=== PATIENT | male | born 1985 | race Caucasian/White ===

== ENCOUNTER 2023-01-22 16:20 | Inpatient (IN) | payer OTHER ==
[2023-01-22 18:01] VITALS: BMI 25.8
[2023-01-22] MEDS ORDERED: NALOXONE HCL 0.4 MG/ML VIAL IM PRN (19:23)
[2023-01-22] MEDS ORDERED: IBUPROFEN 400 MG TABLET (FP) PO PRN (19:23)
[2023-01-22] MEDS ORDERED: BENZOCAINE/MENTHOL (CHLORASEPTIC ) LOZENGE MM PRN (19:23)
[2023-01-22] MEDS ORDERED: MAG HYDROX/AL HYDROX/SIMETH 30 ML UNIT-DOSE CUP PO PRN (19:23)
[2023-01-22] MEDS ORDERED: POLYETHYLENE GLYCOL (HEALTHYLAX) 3350 17 GM PACKET PO PRN (19:23)
[2023-01-22] MEDS ORDERED: BISMUTH SUBSALICYLATE 524 MG/30 ML PO PRN (19:23)
[2023-01-22] MEDS ORDERED: ONDANSETRON *ODT* 4 MG TABLET SL PRN (19:23)
[2023-01-22] MEDS ORDERED: IBUPROFEN 600 MG TABLET (FP) PO PRN (19:23)
[2023-01-22] MEDS ORDERED: BENZONATATE 200 MG CAPSULE PO PRN (19:23)
[2023-01-22] MEDS ORDERED: P-EPHED 60MG/TRIPROLIDI 2.5MG TABLET PO PRN (19:23)
[2023-01-22] MEDS ORDERED: MAGNESIUM HYDROX 2400MG/30ML ORAL SUSPENSION 30 ML CUP PO PRN (19:23)
[2023-01-22] MEDS ORDERED: DICYCLOMINE HCL 10 MG CAPSULE PO PRN (19:23)
[2023-01-22] MEDS ORDERED: ACETAMINOPHEN 325 MG TABLET (FP) PO PRN (19:23)
[2023-01-22] MEDS ORDERED: NALOXONE HCL (KLOXXADO) 8 MG SPRAY NS PRN (19:23)
[2023-01-22] MEDS ORDERED: LOPERAMIDE HCL 2 MG CAPSULE PO PRN (19:23)
[2023-01-22] MEDS ORDERED: guaiFENesin 600 MG TABLET.ER (FP) PO PRN (19:23)
[2023-01-22] MEDS: NICOTINE POLACRILEX 2 MG GUM BUC PRN (19:56)
[2023-01-22] MEDS ORDERED: MELATONIN 5 MG TABLETS PO SCH (22:00)
[2023-01-22] MEDS: THIAMINE HCL 100 MG TABLET (FP) PO SCH (22:13)
[2023-01-22] MEDS: hydrOXYzine PAMOATE 25 MG CAPSULE (FP) PO PRN (22:13)
[2023-01-22] MEDS: METHOCARBAMOL 500 MG TABLET PO PRN (22:13)
[2023-01-23] MEDS ORDERED: diazePAM 5 MG TABLET PO PRN (10:45)
[2023-01-23] MEDS: ARIPiprazole 10 MG TABLET PO SCH (10:57)
[2023-01-23] MEDS: hydrOXYzine PAMOATE 25 MG CAPSULE (FP) PO PRN ×2 (10:57→16:52)
[2023-01-23] MEDS: PRENATAL VITAMINS W/ FOLIC ACID TABLET (FP) PO SCH (10:57)
[2023-01-23] MEDS: DEXTROAMPHETAMINE/AMPHETAMINE 10 MG CAP.ER.24H PO SCH (10:57)
[2023-01-23] MEDS: METHOCARBAMOL 500 MG TABLET PO PRN ×2 (10:57→22:05)
[2023-01-23] MEDS: NICOTINE 14 MG/24 HOURS TOPICAL PATCH TD SCH (10:58)
[2023-01-23] MEDS: diazePAM 5 MG TABLET PO SCH ×3 (11:14→22:00)
[2023-01-23] MEDS: GABAPENTIN 100 MG CAPSULE PO SCH ×2 (13:07→21:59)
[2023-01-23 20:56] VITALS: RESP 18
[2023-01-23] MEDS: NICOTINE POLACRILEX 2 MG GUM BUC PRN (21:04)
[2023-01-23] MEDS: THIAMINE HCL 100 MG TABLET (FP) PO SCH (21:59)
[2023-01-24] MEDS: GABAPENTIN 100 MG CAPSULE PO SCH (05:19)
[2023-01-24] MEDS ORDERED: diazePAM 5 MG TABLET PO SCH (06:00)
[2023-01-24 09:07] VITALS: BP 103/69; PULSE 82; TEMP 97.5
[2023-01-24] MEDS: PRENATAL VITAMINS W/ FOLIC ACID TABLET (FP) PO SCH (10:31)
[2023-01-24] MEDS: NICOTINE 14 MG/24 HOURS TOPICAL PATCH TD SCH (10:31)
[2023-01-24] MEDS: ARIPiprazole 10 MG TABLET PO SCH (10:31)
[2023-01-24] MEDS: DEXTROAMPHETAMINE/AMPHETAMINE 10 MG CAP.ER.24H PO SCH (10:31)
[2023-01-25] MEDS ORDERED: diazePAM 5 MG TABLET PO SCH (06:00)
[2023-01-26] MEDS ORDERED: diazePAM 5 MG TABLET PO ONE (06:00)
== END 2023-01-24 10:28 | disposition left against medical advice (07) | DRG 770 ==
LOC: YASAS 16:20 → Y6N 18:34
PROVIDERS: ADMIT Allergy & Immunology; ATTEND Surgery
PROC: HZ2ZZZZ Detoxification Services for Substance Abuse Treatment (ICD-10-PCS; principal; 2023-01-22)
DX: F10.230 Alcohol dependence with withdrawal, uncomplicated (principal); F11.20 Opioid dependence, uncomplicated; F15.10 Other stimulant abuse, uncomplicated; F17.210 Nicotine dependence, cigarettes, uncomplicated; F25.1 Schizoaffective disorder, depressive type; F31.9 Bipolar disorder, unspecified; F19.24 Other psychoactive substance dependence with psychoactive substance-induced mood disorder; F41.9 Anxiety disorder, unspecified; F90.9 Attention-deficit hyperactivity disorder, unspecified type; Z62.810 Personal history of physical and sexual abuse in childhood
CPT/HCPCS: 87635